=== PATIENT | female | born 1995 | race Native Hawaiian/Other Pacific Islander ===

== ENCOUNTER 2017-12-22 15:58 | Emergency (ER) | payer OTHER ==
[~2017-12-22] VITALS: Ht 165.1 cm; Wt 60.0 kg
[2017-12-22 16:21] VITALS: BP 127/61; PULSE 86; RESP 18; TEMP 98.3; O2SAT 100
[2017-12-22] MEDS ORDERED: PANTOPRAZOLE INJ 80 MG in SODIUM CHLORIDE 0.9% INJ 35 ML IV ONE (19:51)
[2017-12-22] MEDS ORDERED: SODIUM CHLORIDE 0.9% FLUSH 10 ML FLUSH IVF PRN (20:00)
--- NOTE | 2017-12-22 20:08 | PD ---
HPI Chief Complaint: GI Complaint Time Seen by Provider: 19:51 Travel History International Travel<30 days: No Contact w/Intl Traveler<30days: No Traveled to known affect area: No History of Present Illness HPI Patient is a 22-year-old female complaining of melena black tarry stools for 3 days. She has a history of bleeding ulcers that she developed years ago when she was a high school student back in [facility]. Patient had an endoscopy at that time that saw bleeding ulcers and she was H. pylori positive now a year ago she had similar symptoms had an endoscopy that showed healing ulcers. She has not been compliant with taking her PPI daily and now for 3 days she is having epigastric pain and black tarry stools PFS Past Medical History ?: Not LMP: DECEMBER 2017 Social History Tobacco Use: No Allergies-Medications (Allergen,Severity, Reaction): Coded Allergies: Penicillins (Verified Allergy, Severe, Rash, 12/22/17) Reported Meds & Prescriptions Reported Meds & Active Scripts Active Protonix (Pantoprazole Sodium) 40 Mg Tab 40 Mg PO DAILY Review of Systems Except as stated in HPI: all other systems reviewed are Neg Gastrointestinal: Positive: Abdominal Pain, Other (melena ) Physical Exam Narrative GENERAL: non toxic no distress no signs of orthostatic changes , SKIN: Warm and dry. HEAD: Atraumatic. Normocephalic. EYES: Pupils equal and round. No scleral icterus. No injection or drainage. ENT: No nasal bleeding or discharge. Mucous membranes pink and moist. NECK: Trachea midline. No JVD. CARDIOVASCULAR: Regular rate and rhythm. RESPIRATORY: No accessory muscle use. Clear to auscultation. Breath sounds equal bilaterally. GASTROINTESTINAL: Abdomen patient slightly tender in the epigastrium but very mild no distention all other quadrants are negative for pain MUSCULOSKELETAL: Extremities without clubbing, cyanosis, or edema. No obvious deformities. NEUROLOGICAL: Awake and alert. No obvious cranial nerve deficits. Motor grossly within normal limits. Five out of 5 muscle strength in the arms and legs. Normal speech. PSYCHIATRIC: Appropriate mood and affect; insight and judgment normal. Patient defers rectal exam and does not want to have the smell emptied to the rectal exam so the nurse does the rectal exam and guaiac card while a standpoint creatinine it is guaiac positive Data Data Last Documented VS Vital Signs Date Time Temp Pulse Resp B/P (MAP) Pulse Ox O2 Delivery O2 Flow Rate FiO2 12/22/17 22:01 12/22/17 21:48 93 18 90 16 92 16 12/22/17 16:21 98.3 100 Orders Orders Complete Blood Count With Diff (12/22/17 19:51) Comprehensive Metabolic Panel (12/22/17 19:51) Lipase (12/22/17 19:51) Urinalysis - C+S If Indicated (12/22/17 19:51) Ecg Monitoring (12/22/17 19:51) Iv Access Insert/Monitor (12/22/17 19:51) Oximetry (12/22/17 19:51) Sodium Chloride 0.9% Flush (Ns Flush) (12/22/17 20:00) Sodium Chloride 0.9... W/Pantoprazole In (12/22/17 19:51) Type And Screen (12/22/17 19:51) Sodium Chlor 0.9% 1000 Ml Inj (Ns 1000 M (12/22/17 20:45) Ed Discharge Order (12/22/17 21:53) Labs Laboratory Tests Test 12/22/17 20:10 White Blood Count 4.6 TH/MM3 Red Blood Count 4.43 MIL/MM3 Hemoglobin 9.7 GM/DL Hematocrit 30.6 % Mean Corpuscular Volume 69.2 FL Mean Corpuscular Hemoglobin 21.9 PG Mean Corpuscular Hemoglobin Concent 31.7 % Red Cell Distribution Width 14.5 % Platelet Count 176 TH/MM3 Mean Platelet Volume 9.5 FL Neutrophils (%) (Auto) 49.8 % Lymphocytes (%) (Auto) 42.4 % Monocytes (%) (Auto) 4.8 % Eosinophils (%) (Auto) 1.6 % Basophils (%) (Auto) 1.4 % Neutrophils # (Auto) 2.3 TH/MM3 Lymphocytes # (Auto) 1.9 TH/MM3 Monocytes # (Auto) 0.2 TH/MM3 Eosinophils # (Auto) 0.1 TH/MM3 Basophils # (Auto) 0.1 TH/MM3 CBC Comment DIFF FINAL Differential Comment Urine Color LIGHT-YELLOW Urine Turbidity CLEAR Urine pH 6.5 Urine Specific Pearce 1.010 Urine Protein NEG mg/dL Urine Glucose (UA) NEG mg/dL Urine Ketones NEG mg/dL Urine Occult Blood NEG Urine Nitrite NEG Urine Bilirubin NEG Urine Urobilinogen LESS THAN 2.0 MG/DL Urine Leukocyte Esterase NEG Urine WBC 1 /hpf Urine Squamous Epithelial Cells 2 /hpf Urine Bacteria RARE /hpf Microscopic Urinalysis Comment CULT NOT INDICATED Blood Urea Nitrogen 13 MG/DL Creatinine 0.68 MG/DL Random Glucose 92 MG/DL Total Protein 7.3 GM/DL Albumin 3.8 GM/DL Calcium Level 8.9 MG/DL Alkaline Phosphatase 72 U/L Aspartate Amino Transf (AST/SGOT) 14 U/L Alanine Aminotransferase (ALT/SGPT) 19 U/L Total Bilirubin 0.2 MG/DL Sodium Level 139 MEQ/L Potassium Level 3.6 MEQ/L Chloride Level 105 MEQ/L Carbon Dioxide Level 29.0 MEQ/L Anion Gap 5 MEQ/L Estimat Glomerular Filtration Rate 108 ML/MIN Lipase 141 U/L [facility] Medical Decision Making Medical Screen Exam Complete: Yes Emergency Medical Condition: Yes Differential Diagnosis Differential diagnosis includes iron induced black stool versus Pepto-Bismol and is black stool versus melena from an ulcer bleeding in the stomach versus other Narrative Course Patient has a guaiac exam done by the nurse with me standing bedside and it is positive change of color positive for occult heme Diagnosis Primary Impression: Melena Patient Instructions: Gastrointestinal Bleeding (ED), General Instructions Scripts Ferrous Gluconate (Iron) 240 Mg (27 Mg Iron) Tablet 27 MG PO DAILY for 30 Days Prov: Jimmy Perea MD 12/22/17 Pantoprazole (Protonix) 40 Mg Tab 40 MG PO DAILY for Reflux, #30 TAB 0 Refills Prov: Jimmy Perea MD 12/22/17 Disposition: 01 DISCHARGE HOME Condition: Good Jimmy Perea MD Dec 22, 2017 20:08
[2017-12-22 20:45] LABS: AUTOMATED NEUTROPHIL # 2.3 TH/MM3 (1.8-7.7); BASOPHIL # 0.1 TH/MM3 (0-0.2); BASOPHIL % 1.4 % (0.0-2.0); EOSINOPHIL # 0.1 TH/MM3 (0-0.4); EOSINOPHIL % 1.6 % (0.0-4.0); HEMATOCRIT 30.6 % (35.0-46.0); HEMOGLOBIN 9.7 GM/DL (11.6-15.3); LYMPH % 42.4 % (9.0-44.0); LYMPHOCYTE # 1.9 TH/MM3 (1.0-4.8); MEAN CELL VOLUME 69.2 FL (80.0-100.0); MEAN CORPUSCULAR HEMOGLOBIN 21.9 PG (27.0-34.0); MEAN CORPUSCULAR HGB CONC 31.7 % (32.0-36.0); MEAN PLATELET VOLUME 9.5 FL (7.0-11.0); MONO % 4.8 % (0.0-8.0); MONOCYTE # 0.2 TH/MM3 (0-0.9); NEUT % 49.8 % (16.0-70.0); PLATELET COUNT 176 TH/MM3 (150-450); RED BLOOD COUNT 4.43 MIL/MM3 (4.00-5.30); RED CELL DISTRIBUTION WIDTH 14.5 % (11.6-17.2); WHITE BLOOD COUNT 4.6 TH/MM3 (4.0-11.0)
[2017-12-22] MEDS ORDERED: SODIUM CHLOR 0.9% 1000 ML INJ 1,000 ML IV ONE (20:45)
[2017-12-22 20:54] LABS: BACTERIA, URINE RARE /hpf; BILIRUBIN, URINE NEG (NEG); BLOOD, URINE NEG (NEG); GLUCOSE,URINE NEG (NEG); KETONE, URINE NEG (NEG); NITRITE,URINE NEG (NEG); PH, URINE 6.5 (5.0-8.5); SQUAMOUS EPITHELIAL CELL URINE 2 /hpf (0-5); URINE COLOR LIGHT-YELLOW (YELLW/STRAW); URINE LEUKOCYTE ESTERASE NEG (NEG)
[2017-12-22 21:10] LABS: ALBUMIN 3.8 GM/DL (3.4-5.0); AST (GOT) 14 U/L (15-37); BLOOD UREA NITROGEN 13 MG/DL (7-18); CALCIUM 8.9 MG/DL (8.5-10.1); CHLORIDE 105 MEQ/L (98-107); CREATININE 0.68 MG/DL (0.50-1.00); GLOMERULAR FILTRATION RATE 108 ML/MIN (>89); GLUCOSE,RANDOM 92 MG/DL (74-106); SODIUM (NA) 139 MEQ/L (136-145)
[2017-12-22 21:16] LABS: ALKALINE PHOSPHATASE 72 U/L (45-117); ALT (GPT) 19 U/L (10-53); TOTAL BILIRUBIN ADULT 0.2 MG/DL (0.2-1.0); TOTAL PROTEIN 7.3 GM/DL (6.4-8.2)
[2017-12-22 21:48] VITALS: BP_SYST 122; BP_SYST 134; BP_DIAS 73; BP_DIAS 77; BP_DIAS 78; RESP 16; RESP 18
[2017-12-22] MEDS ORDERED: FERR240T8 PO (21:50)
[2017-12-22] MEDS ORDERED: PROT40TA PO (21:50)
== END 2017-12-22 22:03 | disposition home or self-care (01) ==
LOC: NEPE 15:58
DX: K92.1 Melena (principal); Z91.19 Patient's noncompliance with other medical treatment and regimen
CPT/HCPCS: 80053; 81001; 83690; 85025; 86850; 86900; 86901; 96361; 96365; 99283; C9113; J7030